=== PATIENT | female | born 1970 | race Caucasian/White ===

== ENCOUNTER 2025-03-08 06:14 | Emergency (ER) | payer OTHER, SELFPAY ==
--- NOTE | 2025-03-08 06:17 | XRR_ITS ---
PROCEDURE INFORMATION: Exam: XR Chest Exam date and time: 03/08/2025 6:24 AM Age: 54 years old Clinical indication: Chest pressure; C/O chest pain TECHNIQUE: Imaging protocol: Radiologic exam of the chest. Views: 1 view. COMPARISON: No relevant prior studies available. FINDINGS: Lungs: Unremarkable. No consolidation. Pleural spaces: Unremarkable. No pleural effusion. No pneumothorax. Heart/Mediastinum: Unremarkable. No cardiomegaly. Bones/joints: Unremarkable. XR/XR chest 1V portable [id number] IMPRESSION: No acute findings.
[2025-03-08 06:18] VITALS: BP 158/93; PULSE 80; RESP 26; O2SAT 100; BMI 27.3
--- NOTE | 2025-03-08 06:22 | ECG_ITS ---
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
--- OUTSIDE RECORDS SUMMARY | 2025-03-08 06:22 | XMS_ITS | Continuity of Care Document ---
Author Organization [facility]. If a dditional information is needed, contact Health Information Management at [phone] [address] [place] [address] Phone Care Team Providers Care Grinding Machine Operator Automatic Name Role Phone Unavailable Unavailable Unavailable Unavailable Unavailable Unavailable Unavailable Unavailable Unavailable Unavailable Unavailable Unavailable Unavailable Unavailable Unavailable Allergies and Adverse Reactions No Known Contrast Allergies( Allergy) Onset: 21-Dec-2004 No Known Drug Allergies(Gaurav rgy) Onset: 21-Dec-2004 No Known Food Allergies(Gaurav rgy) Onset: 21-Dec-2004 No Known Other Allergies(All ergy) Onset: 21-Dec-2004 Encounters pre-admission 01-Jan-2014 08:00 [facility]
--- OUTSIDE RECORDS SUMMARY | 2025-03-08 06:23 | XMS_ITS | Patient Health Record ---
Author Organization [facility] Address [address] [place], [place] [address] Care Team Providers Care Mine Engineering Supervisor Name Role Phone Cliff Carter Unavailable Reason For Referral No Information Medications Medication SIG (Take, Route, Frequency, Duration) Notes Start Date End Date Status Omeprazole 40 MG Oral qAM; Duration: 0 1 (one) C APSULE qAM ORAL 1/2 HR PRIOR TO FOOD 09/15/2011 Active Problems Problem Type SNOMED Code ICD Code Onset Dates Problem Status W/U Status Risk Notes Problem Screening for malignant neoplasm of colon (586280665) Encounter for screening for malignant neoplasm of colon (Z12.11) 02/25/2022 Active confirmed Plan Of Treatment No Information Insurance Providers Payer Name Payer Address Payer Phone Subscriber Number Group Number Insured Name Patient Relationship to Insured Coverage Start Date Coverage End Date [facility] Federal [address] [place] [address] [id number] LYUDMILA BALDERAS Self - patient is the insured 2
--- OUTSIDE RECORDS SUMMARY | 2025-03-08 06:23 | XMS_ITS | Clinical Summary ---
Author Organization [facility] Address [address] [place] [address] Care Team Providers Care Hand Tire Trimmer Name Role Phone Diane Spring MD Primary Care Provider [phone] Allergies No known active allergies Medications aspirin 81 MG chewable tablet Chew 1 tablet (81 mg total) daily. 08/11/2021 Active Social History Tobacco Use Types Packs/Day Years Used Date Smoking Tobacco: Former Cigarettes Smokeless Tobacco: Never Tobacco Cessation:Counseling Given: Not Answered Alcohol Use Standard Drinks/Week Comments Not Currently 0 (1 standard drink = 0.6 oz pur e alcohol) PHQ-2 Answer Date Recorded Part 1 Score: 0 07/09/2024 [facility] Transportation Needs Answer Date R ecorded Transportation Needs Not on file 09/02/2023 In the next 24 hours or afte r discharge, are you in a situation where housing, food, or transportation is a concern, or does the patient demonstrate the inability to care for self that could result in imminent harm No 09/01 [facility] Food Insecurity Answer Date Record ed Food Insecurity Not on file 09/02/2023 In the next 24 hours or afte r discharge, are you in a situation where housing, food, or transportation is a concern, or does the patient demonstrate the inability to care for self that could result in imminent harm No 09/01 [facility] Housing Answer Date Recorded Housing Insecurity Not on file 09/02/2023 In the next 24 hours or afte r discharge, are you in a situation where housing, food, or transportation is a concern, or does the patient demonstrate the inability to care for self that could result in imminent harm No 09/01 Comments No Sex and Gender Information Value Date Recorded Sex Assigned at Not on file Legal Sex Female 1:11 PM CLINICAL PROJECT ASSISTANT Gender Identity Not on file Sexual Orientation Not on file Last Filed Vital Signs Vital Sign Reading Time Taken Comments Blood Pressure 152/98 07/09/2024 11:19 PM CLINICAL PROJECT ASSISTANT Pulse 67 07/09/2024 11:19 PM CLINICAL PROJECT ASSISTANT Temperature 36.1 C (96.9 F) 07/09/2024 11:19 PM CLINICAL PROJECT ASSISTANT Respiratory Rate 18 07/09/2024 11:19 PM CLINICAL PROJECT ASSISTANT Oxygen Saturation 100% 07/09/2024 11:19 PM CLINICAL PROJECT ASSISTANT Inhaled Oxygen Concentration - - Weight 104.3 kg (230 lb) 08/11/2021 4:00 PM CLINICAL PROJECT ASSISTANT Height 172.7 cm (5' 8 ) 08/11/2021 4:00 PM CLINICAL PROJECT ASSISTANT Body Mass Index 34.97 08/11/2021 4:00 PM CLINICAL PROJECT ASSISTANT Plan of Treatment Health Maintenance Due Date Last Done Comments Colonoscopy 1970 Colorectal Cancer Screening 1970 FIT-DNA 1970 Fecal Occult Blood or FIT 1970 Hepatitis C Screen 1970 Sigmoidoscopy 1970 Td/Tdap# 1970 Social Drivers of Health# 1988 Cervical Cancer Screening vi a Pap Smear 1991 Mammogram Screening 2010 Hepatitis B Vaccine (3 of 3 - 19+ 3-dose series) 10/14/2019 08/19/2019, 02/15/2017 Pneumococcal Vaccine: 50+ Ye ars (1 of 1 - PCV) 2020 COVID-19 Vaccine (6 - 2024-2 6 season) 2025 04/21/2022, 11/03/2021, 03/08/2021, Additional history exists Influenza Vaccine (#1) 2025 , 04/21/2022, 03/08/2021, Additional history exists Zoster Vaccine# Completed 04/05/2023, 02/01/2023 Insurance [facility] Care Teams Hand Tire Trimmer Relationship Specialty Start Date End Date Diane Spring MD PCP - General Family Medicine 08/11/21
--- OUTSIDE RECORDS SUMMARY | 2025-03-08 06:23 | XMS_ITS | Patient Health Record ---
Author Organization [facility] Address [address] [place], [place] [address] Care Team Providers Care Shoddy Mill Worker Name Role Phone Diane Spring Primary Care Provider Dilshad Wyman Unavailable [phone] Allergies No Known Allergies Reason For Referral No Information Medications Medication SIG (Take, Route, Fr equency, Duration) Notes Start Date End Date Status Multivitamin - 1 tablet Orally Once a day Active Omeprazole Active Social History Tobacco Use: Social History Observation Description Date Details (start date - stop date) Current Smoker NA - NA smoking Question Answer Notes Smoking Status current smoker Problems Problem Type SNOMED Code ICD Code Onset Dates Problem Status W/U Status Risk Notes Problem Neuropathy (702699410) Neuropathy (G62.9) Active confirmed cramping pain in the right foot cannot be reproduced today. Symptoms of sensory changes in both feet and hands warrant further workup/Neuro consult. Problem Pain in limb (41920341) Mechanical pain of right foot (M79.671) Active confirmed Plan Of Treatment Pending Test Test Name Order Date X ray: Foot, right 02/24/2021 Insurance Providers Payer Name Payer Address Payer Phone Subscriber Number Group Number Insured Name Patient Relationship to Insured Coverage Start Date Coverage End Date [employer] [place] [address] [place] [phone] [id number] Sagar Pérez Self - patient is the insured Medical (General) History Medical History History ICD Code Foot or Leg Cramps Swelling in Ankles and Feet Cramps or Numbness in Feet or Legs
--- OUTSIDE RECORDS SUMMARY | 2025-03-08 06:23 | XMS_ITS | Clinical Summary ---
Author Organization [facility] Address [address] [place] [address] Care Team Providers Care Martial Arts Instructor Name Role Phone Shyann Jimenez APRN-[facility] MOBILITY ARCHITECT Unavailable [phone] Serina Molina MD Primary Care Provider [phone] Source Comments Some departments are not documenting in the electronic medical record. If you do not see the information that you expected, contact Release of Information in the Health Information Management department at [phone] for further assistance in locating additional records.[facility] Allergies Active Allergy Reactions Criticality Noted Date Comments Levofloxacin RASH 10/28/2013 Gatifloxacin RASH 10/28/2013 Medications ACETAMINOPHEN (TYLENOL PO) Take by mouth. Active famotidine (PEPCID) 20 mg tablet Take 20 mg by mouth twice daily. Active Medical History Medical History Date Comments Leuk[facility] ([facility]) Social History Tobacco Use Types Packs/Day Years Used Date Smoking Tobacco: Never Smokeless Tobacco: Never Alcohol Use Standard Drinks/Week Comments No 0 (1 standard drink = 0.6 oz pur e alcohol) Comments No Sex and Gender Information Value Date Recorded Sex Assigned at Not on file Legal Sex Female 8:18 PM CDT Gender Identity Not on file Sexual Orientation Not on file Obstetrics History Last Filed Vital Signs Vital Sign Reading Time Taken Comments Blood Pressure 188/96 10/28/2013 8:21 PM CDT Pulse - - Temperature 37.3 C (99.1 F) 10/28/2013 8:21 PM CDT Respiratory Rate - - Oxygen Saturation 98% 10/28/2013 8:21 PM CDT Inhaled Oxygen Concentration - - Weight 91.2 kg (201 lb 1 oz) 10/28/2013 8:21 PM CDT Height - - Body Mass Index - - Plan of Treatment Health Maintenance Due Date Last Done Comments HIV SCREENING 1985 DTAP/TDAP VACCINES (1 - Tdap) 1988 HEPATITIS C SCREENING 1988 PHYSICAL (COMPREHENSIVE) EXAM 1988 CERVICAL CANCER SCREENING 1991 BREAST CANCER SCREENING 2010 COLORECTAL CANCER SCREENING 2015 PNEUMOCOCCAL VACCINE AGE 50 AND OVER (1 of 1 - PCV) 2020 SHINGLES RECOMBINANT VACCINE (1 of 2) 2020 DEPRESSION SCREENING 06/12/2024 INFLUENZA VACCINE (#1) 2025 COVID-19 VACCINE (1 - 2023-2 5 season) 2025 HPV VACCINES Aged Out No longer eligi ble based on patient's age to complete this topic MENINGOCOCCAL B VACCINE Aged Out No l onger eligible based on patient's age to complete this topic Insurance BCBS MER FED EMP PROGRAM Care Teams Martial Arts Instructor Relationship Specialty Start Date End Date Serina Molina MD [address] [place] [address] PCP - General Family Medicine 10/28/13 Shyann Jimenez APRN-[employer] MOBILITY ARCHITECT [address] [place] [address] 10/28/13
--- OUTSIDE RECORDS SUMMARY | 2025-03-08 06:23 | XMS_ITS | Encounter Summary ---
Author Organization [facility] Address [address] [place] [address] Care Team Providers Care Roofing Laborer Name Role Phone Hanna Sandhu MD Primary Care Provider + Source Comments Please be aware that You and/or your organization are solely responsible for the use, security, privacy, and any decisions made with any information you receive from [email or web address] Reason for Visit * Reason Comments Med Change Request Encounter Details Date Type Department Care Team ([facility] Contact Info) Description 03/05/2025 Refill [facility] [address] [place] [phone] Hanna Sandhu MD [address] [place] [address] Obesity (BMI 30-39.9); Obstructive sleep apnea of adult Social History Tobacco Use Types Packs/Day Years Used Date Smoking Tobacco: Former Cigarettes 0.2 39.7 S tarted: 1985 Passive Smoke Exposure: Past Smokeless Tobacco: Never Alcohol Use Standard Drinks/Week Comments Yes 1 (1 standard drink = 0.6 oz pur e alcohol) week Social Connection and Isolat ion Panel [NHANES] Answer Date Recorded In a typical week, how many times do you talk on the phone with family, friends, or neighbors? More than three times a week 08/23/2024 How often do you get togethe r with friends or relatives? Three times a week 08/23/2024 How often do you attend [facility] or anglican services? Never 08/23/2024 Do you belong to any clubs o r organizations such as taoism groups, unions, fraternal or athletic groups, or school groups? No 08/23/2024 How often do you attend meet ings of the clubs or organizations you belong to? Never 08/23/2024 Are you , , di vorced, , never , or living with a partner? Living with partner 08/23/2024 AUDIT-C Answer Date Recorded Q1: How often do you have a drink containing alc ohol? Monthly or less 08/23/2024 Q2: How many drinks containi ng alcohol do you have on a typical day when you are drinking? 1 or 2 08/23/2024 Q3: How often do you have si x or more drinks on one occasion? Never 08/23/2024 Overall Financial Resource Strain (CARDIA) Answe r Date Recorded How hard is it for you to pa y for the very basics like food, housing, medical care, and heating? Not hard at all 08/23/2024 PHQ-2 Answer Date Recorded Patient Health Questionnaire-2 Score 0 08/23/2024 [facility] - Occupational Stress Questionnaire Answer Date Recorded Do you feel stress - tense, restless, nervous, or anxious, or unable to sleep at night because your mind is troubled all the time - these days? Only a little 08/23/2024 Physical Activity Answer Date Recorded On average, how many days pe r week do you engage in moderate to strenuous exercise (like a brisk walk)? 4 days On average, how many minutes do you engage in exercise at this level? 30 min 08/23/2024 On average, how many minutes do you engage in exercise at this level? 30 min 08/23/2024 On average, how many days pe r week do you engage in moderate to strenuous exercise (like a brisk walk)? 4 days Days of Exercise per Week PEA Not on file Minutes of Exercise per Session PEA Not on file 08/23/2024 [facility] Food Security Answer Date Recorded Within the past 12 months, t he food you bought just didn't last and you didn't have money to get more. 3 08/23/2024 Within the past 12 months, y ou worried that your food would run out before you got money to buy more. 3 08/23/2024 [facility] Transportation Needs Answer Date Re corded In the past 12 months, has l ack of reliable transportation kept you from medical appointments, meetings, work or from getting things needed for daily living? No 08/23/2024 [facility] Housing Answer Date Recorded What is your living situation today? [facility] 08/23/[address] you li ve. Do you have problems with any of the following? None of the above 08/23/2024 [facility] Safety Answer Date Recorded How often does anyone, mark nevarez family and friends, threaten you with harm? 1 08/23/2024 How often does anyone, mark nevarez family and friends, insult or talk down to you? 1 08/23/2024 How often does anyone, mark nevarez family and friends, physically hurt you? 1 08/23/2024 How often does anyone, mark nevarez family and friends, scream or curse at you? 1 08/23/2024 [facility] Utilities Answer Date Recorded In the past 12 months has th e electric, gas, oil, or water company threatened to shut off services in your home? No 08/23/2024 Comments No Sex and Gender Information Value Date Recorded Sex Assigned at Not on file Legal Sex Female 8:28 PM EST Gender Identity Not on file Sexual Orientation Not on file documented as of this encounter Plan of Treatment Upcoming Encounters Date Type Department Care Team (Late st Contact Info) Description 05/16/2025 8:00 AM OXYACETYLENE WELDER Office Visit [facility] [address] [place] [phone] [place] [address] [place] [address] [address] [place] [phone] documented as of this encounter Visit Diagnoses Diagnosis Obesity (BMI 30-39.9) Obstructive sleep apnea of adult documented in this encounter Care Teams Roofing Laborer Relationship Specialty Start Date End Date Hanna Sandhu MD PCP - General Family Medicine 01/31/23 documented as of this encounter
--- OUTSIDE RECORDS SUMMARY | 2025-03-08 06:23 | XMS_ITS | Encounter Summary ---
Author Organization [facility] Address [address] [place] [address] Care Team Providers Care Irrigation Installation Specialist Name Role Phone Hanna Sandhu MD Primary Care Provider + Source Comments Please be aware that You and/or your organization are solely responsible for the use, security, privacy, and any decisions made with any information you receive from [email or web address] Reason for Visit * Reason Comments Med Refill Encounter Details Date Type Department Care Team ([facility] Contact Info) Description 03/05/2025 Refill [facility] [address] [place] [phone] Hanna Sandhu MD [address] [place] [phone] Obesity (BMI 30-39.9); Obstructive sleep apnea of adult Social History Tobacco Use Types Packs/Day Years Used Date Smoking Tobacco: Former Cigarettes 0.2 39.7 S tarted: 1986 Passive Smoke Exposure: Past Smokeless Tobacco: Never [...] week 08/23/2024 How often do you attend [facility] or druze services? Never 08/23/2024 Do you belong to any clubs o r organizations such as druze groups, unions, fraternal or athletic groups, or [...] Recorded Patient Health Questionnaire-2 Score 0 08/23/2024 [facility] - Occupational Stress Questionnaire Answer Date [...] per Session PEA Not on file 08/23/2024 [facility] Food Security Answer Date Recorded Within the past 12 months, t he food you bought just didn't last and you didn't have money to get more. 3 08/23/2024 Within the past 12 months, y ou worried that your food would run out before you got money to buy more. 3 08/23/2024 [facility] Transportation Needs Answer Date Re corded In the past 12 months, has l ack of reliable transportation kept you from medical appointments, meetings, work or from getting things needed for daily living? No 08/23/2024 [facility] Housing Answer Date Recorded What is your living situation today? [facility] 08/23/[address] you li ve. Do you have problems with any of the following? None of the above 08/23/2024 [facility] Safety Answer Date Recorded How often does [...] scream or curse at you? 1 08/23/2024 [facility] Utilities Answer Date Recorded In the past [...] st Contact Info) Description 05/16/2025 8:00 AM RETAIL SHIFT SUPERVISOR Office Visit [facility] [address] [place] [phone] [place] [address] [place] [address] [address] [place] [phone] documented as of this encounter Visit Diagnoses Diagnosis Obesity (BMI 30-39.9) Obstructive sleep apnea of adult documented in this encounter Care Teams Irrigation Installation Specialist Relationship Specialty Start Date End Date Hanna Sandhu MD PCP - General Family Medicine 01/31/23 documented as of this encounter
--- OUTSIDE RECORDS SUMMARY | 2025-03-08 06:24 | XMS_ITS | Clinical Summary ---
Author Organization [facility] Address [address] [place] [address] Care Team Providers Care Geodetic Surveyor Name Role Phone Hanna Sandhu MD Primary Care Provider + Allergies Active Allergy Reactions Criticality Noted Date Comments Gatifloxacin Hives,Rash Low 02/01/2012 Tequin Levofloxacin Rash Low 10/28/2013 Quinolones 07/04/2023 fluoroquinolone Medications Multiple Vitamin (multivitamin) tablet Take 1 tablet by mouth 1 (one) time each day. Active FIBER ADULT GUMMIES PO Take by mouth. Active LORazepam (Ativan) 0.5 MG tabletIndication s:Panic attack Take 1 tablet (0.5 mg total) by mouth every 6 (six) hours if needed for anxiety for up to 10 days. 30 tablet 05/23/20 24 Active buPROPion XL (Wellbutrin XL) 150 MG 24 hr tabletIndication s:MDD (major depressive disorder), recurrent episode, mild (HCC) Take 1 tablet (150 mg total) by mouth 1 (one) time each day in the morning. Do not crush, chew, or split. 90 tablet 3 05/23/20 24 025 Active MAGNESIUM-POTASS IUM PO Take by mouth. Active hydroCHLOROthiaz natalie (HYDRODiuril) 25 MG tabletIndication s:Essential hypertension Take 1 tablet (25 mg total) by mouth 1 (one) time each day. 90 tablet 3 08/24/19 25 026 Active Biotin 1 MG capsule Take by mouth. Active estradiol (Estrace) 0.1 MG/GM vaginal creamIndications :Vaginal dryness Insert 1 g into the vagina 3 (three) times a week. 42.5 g 3 11/16/19 25 Active potassium chloride CR 20 MEQ ER tabletIndication s:Hypokalemia TAKE 1 TABLET BY MOUTH 1 TIME EACH DAY. DO NOT CRUSH OR CHEW. 90 tablet 11/22/19 25 Active pantoprazole (Protonix) 20 MG EC tablet TAKE 1 TABLET (20 MG TOTAL) BY MOUTH DAILY BEFORE BREAKFAST DO NOT CRUSH,CHEW,OR SPIT 90 tablet 1 02/20/20 25 Active Tirzepatide-Weig ht Management (Zepbound) 10 MG/0.5ML solution auto-injectorInd ications:Obesity (BMI 30-39.9),Obstruc tive sleep apnea of adult INJECT 0.5 ML (10 MG TOTAL) UNDER THE SKIN 1 (ONE) TIME PER WEEK. 2 mL 1 03/05/20 25 025 Active pantoprazole (Protonix) 20 MG EC tablet Take 1 tablet (20 mg total) by mouth 1 (one) time each day before breakfast. Do not crush, chew, or split. 90 tablet 3 02/14/20 24 025 Discontinued Tirzepatide-Weig ht Management (Zepbound) 10 MG/0.5ML solution auto-injectorInd ications:Obesity (BMI 30-39.9),Obstruc tive sleep apnea of adult Inject 0.5 mL (10 mg total) under the skin 1 (one) time per week. 2 mL 1 12/31/19 25 025 Discontinued Active Problems Problem Noted Date Diagnosed Date Hypokalemia 08/23/2024 Assessment & Plan (11/15/2024 3:48 PM CDT): Continue potassium supplement Assessment & Plan (08/23/2024 4:27 PM CDT): Continue potassium supplement, will continue to monitor. Obesity (BMI 30-39.9) 05/23/2024 Assessment & Plan (11/15/2024 3:48 PM CDT): Continue zepbound 10 mg per week, continue physical activity and healthy nutrition Assessment & Plan (08/23/2024 4:00 PM CDT): BMI today 29.99. Continue Zepbound and increase to 7.5 mg weekly. Use and side effects reviewed. Tolerating well. Continue whole foods and well balanced meals alongside regular physical activity. Assessment & Plan (05/23/2024 4:10 PM STEEL LOADER): Continue Wegovy 2.4mg/week. Continue strength training, and increased protein and fiber. SVT (supraventricular tachycardia) 05/23/2024 Assessment & Plan (11/15/2024 3:48 PM CDT): Continue to monitor closely, continue potassium supplement Assessment & Plan (05/23/2024 4:10 PM STEEL LOADER): Start propranolol 1/2 tab PRN MDD (major depressive disorder), recurrent episo de, mild 05/23/2024 Assessment & Plan (11/15/2024 3:48 PM CDT): Stable, continue bupropion Assessment & Plan (08/23/2024 4:00 PM CDT): Mood is stable on Wellbutrin 150 mg XL. Continue medication daily. Takes Ativan seldomly and does not need refills today. Assessment & Plan (05/23/2024 4:10 PM STEEL LOADER): Stable, continue bupropion XL 150mg daily Orders: buPROPion XL (Wellbutrin XL) 150 MG 24 hr tablet; Take 1 tablet (150 mg total) by mouth 1 (one) time each day in the morning. Do not crush, chew, or split. Panic attack 05/23/2024 Assessment & Plan (08/23/2024 4:01 PM CDT): Mood is stable on Wellbutrin 150 mg XL. Continue medication daily. Takes Ativan seldomly and does not need refills today. Assessment & Plan (05/23/2024 4:10 PM STEEL LOADER): Stable, continue Ativan PRN. Orders: LORazepam (Ativan) 0.5 MG tablet; Take 1 tablet (0.5 mg total) by mouth every 6 (six) hours if needed for anxiety for up to 10 days. Essential hypertension 05/23/2024 Assessment & Plan (11/15/2024 3:48 PM CDT): Blood pressure at goal, continue hydrochlorothiazide 25 mg Assessment & Plan (08/23/2024 3:59 PM CDT): Will increase to hydrochlorothiazide 25 mg daily to get better BP control. Would advise low sodium diet and regular physical activity. Assessment & Plan (05/23/2024 4:10 PM STEEL LOADER): BP at goal, continue HCTZ 12.5mg per day. Orders: hydroCHLOROthiazide 12.5 MG tablet; Take 1 tablet (12.5 mg total) by mouth 1 (one) time each day. History of myeloid leukemia 02/01/20232 08/2022 Cigarette smoker 02/01/2023 02/01/2023 Mood disorder 02/01/2023 02/01/2023 Vitamin D deficiency 02/01/2023 02/01/2023 Gastroesophageal reflux disease without esophagi tis 04/22/2022 02/01/2023 Assessment & Plan (08/23/2024 3:59 PM CDT): Stable on pantoprazole 20 mg daily. Assessment & Plan (05/23/2024 4:10 PM STEEL LOADER): Stable, continue PPI PRN Multinodular goiter 12/01/2021 02/01/2023 Obstructive sleep apnea of adult 11/06/2019 02/01/2023 Assessment & Plan (11/15/2024 3:48 PM CDT): Continue CPAP and zepbound Assessment & Plan (08/23/2024 3:57 PM CDT): Continue CPAP nightly. Will increase Zepbound to 7.5 mg weekly. Encounters Date Type Department Care Team Description 03/05/2025 Refill [facility] Primary Care at [address] [place] [phone] Hanna Sandhu MD Obesity (BMI 30-39.9); Obstructive sleep apnea of adult 03/05/2025 Refill [facility] Primary Care at [address] [place] [phone] Hanna Sandhu MD Obesity (BMI 30-39.9); Obstructive sleep apnea of adult 02/16/2025 Refill [facility] Primary Care at [address] [place] [address], [place] [phone] Hanna Sandhu MD 12/30/2024 Telephone [facility] Primary Care at [address] [place] [address], [place] [phone] Hanna Sandhu MD from Last 3 Months Immunizations Immunization Administration Dates Next Due Hep A, Adult 08/19/2019,02/15/2017 Hep B, adult 08/19/2019,02/15/2017 Influenza, MDCK, trivalent, PF 08/10/2024 Influenza, injectable, quadrivalent 04/05/2023,0 03/08/2021,03/23/2020 Pfizer Sars-cov-2 Vaccination 11/03/2021 ,03/08/2021,07/23/2020, 021 Pfizer Sars-cov-2 Vaccination 12y+ 11/03/2021 Tdap 02/01/2023,08/18/2012 Zoster, Recombinant 04/05/2023,02/01/2023 Family History Medical History Relation Name Comments Diabetes Father's Brother ALS Maternal Grandfather Lung cancer Maternal Grandfather Breast cancer Maternal Grandmother Adjustment Disorder with Mix ed Anxiety and Depressed Mood Mother paranoia, dx in 30's w/mild schizo after rape by father Dementia Mother Diabetes Mother Heart disease Mother 2 ablations fo r arrhythmia, 2 strokes Hypertension Mother ALS Mother's Brother Brain cancer Mother's Brother Breast cancer Mother's Sister Pancreatic cancer Mother's Sister Anxiety disorder Sister Relation Name Status Comments Father's Brother Maternal Grandfather Maternal Grandmother Mother Mother's Brother Mother's Sister Sister Social History Tobacco Use Types Packs/Day Years Used Date Smoking Tobacco: Former Cigarettes 0.2 39.7 S tarted: 1985 Passive Smoke Exposure: Past Smokeless Tobacco: Never Tobacco Cessation:Counseling Given: Not Answered Alcohol Use Standard Drinks/Week Comments Yes 1 [...] week 08/23/2024 How often do you attend chur ch or moravian services? Never 08/23/2024 Do you belong to any clubs o r organizations such as oriental orthodox groups, unions, fraternal or athletic groups, or [...] Recorded Patient Health Questionnaire-2 Score 0 08/23/2024 [facility] [place] [facility] Occupat ional [facility] - Occupational Stress Questionnaire Answer Date Recorded [...] per Session PEA Not on file 08/23/2024 [facility] Food Security Answer Date Recorded Within the past 12 months, t he food you bought just didn't last and you didn't have money to get more. 3 08/23/2024 Within the past 12 months, y ou worried that your food would run out before you got money to buy more. 3 08/23/2024 [facility] Transportation Needs Answer Date Re corded In the past 12 months, has l ack of reliable transportation kept you from medical appointments, meetings, work or from getting things needed for daily living? No 08/23/2024 [facility] Housing Answer Date Recorded What is your living situation today? I have a [facility] place to live 08/23/[address] you li ve. Do you have problems with any of the following? None of the above 08/23/2024 [facility] Safety Answer Date Recorded How often [...] scream or curse at you? 1 08/23/2024 [facility] Utilities Answer Date Recorded In the [...] Sign Reading Time Taken Comments Blood Pressure 110/86 11/14/2024 12:55 PM CDT Pulse 63 11/14/2024 12:55 PM CDT Temperature 36.4 C (97.6 F) 11/14/2024 12:55 PM CDT Respiratory Rate 16 11/14/2024 12:55 PM CDT Oxygen Saturation 98% 11/14/2024 12:55 PM CDT Inhaled Oxygen Concentration - - Weight 84.6 kg (186 lb 9.6 oz) 11/14/2024 12:55 PM CDT Height 170.2 cm (5' 7 ) 11/14/2024 12:55 PM CDT Body Mass Index 29.23 11/14/2024 12:55 PM CDT Plan of Treatment Upcoming Encounters Date Type Department Care Team (Late st Contact Info) Description 05/16/2025 8:00 AM STEEL LOADER Office Visit [facility] at [place] [address] [facility] [address] [place] [phone] Hanna Sandhu MD [address] [place] [phone] Health Maintenance Due Date Last Done Comments CT Colonography 1970 Cologuard 1970 FIT 1970 FOBT 1970 HIV Screening 1970 Sigmoidoscopy 1970 MMR Vaccines (1 of 1 - Standard series) 1971 Obesity Intervention 1976 Pap Smear 1991 Hepatitis B Vaccines (3 of 3 - 19+ 3-dose series) 10/14/2019 08/19/2019, 02/15/2017 Pneumococcal Vaccine: 50+ Years (1 of 1 - PCV) 2020 Influenza Vaccine (#1) 2025 , 04/05/2023, 03/08/2021, Additional history exists Depression Screening 08/23/2025 08/23/2024 Diabetes Screening 08/23/2025 08/23/2024, 0 08/23/2024, 07/10/2024, Additional history exists Annual Physical 08/24/2025 08/23/2024 Mammogram 08/30/2025 08/30/2024, 12/0 11/2022, 09/10/2021, Additional history exists Lipid Panel 08/23/2029 08/23/2024, 02/01/2023 Cervical Cancer Screening 11/15/2029 HPV/Cotest 11/15/2029 11/15/2024 Colonoscopy 02/26/2032 02/25/2022 Colorectal Cancer Screening 02/26/2032 DTaP/Tdap/Td Vaccines (3 - Td or Tdap) 02/01/2033 02/01/2023, 08/18/2012 Respiratory Syncytial Virus (RSV) 60 years and older and/or patients (1 - 1-dose 75+ series) 2045 Hepatitis A Vaccines Aged Out 08/19/2019, 02/16/20 17 No longer eligible based on patient's age to complete this topic Zoster Vaccines Completed 04/05/2023, 02/01/2023 COVID-19 Vaccine Completed 08/10/2024, , 11/03/2021, Additional history exists HPV Vaccines Aged Out No longer eligi ble based on patient's age to complete this topic Meningococcal B Vaccine Aged Out No l onger eligible based on patient's age to complete this topic Meningococcal Vaccine Aged Out No niraj kristin eligible based on patient's age to complete this topic Respiratory Syncytial Virus (RSV) <20 months Aged Out No longer eligible based on patient's age to complete this topic Procedures Procedure Name Priority Date/Time Associated Diagnosis Comments IGP, APT HPV,RFX 16/18,45 Routine 11/15/2024 6:09 AM CDT Essential hypertension BI MAMMOGRAM SCREENING TOMOSYNTHESIS BILATERAL Routine 08/30/2024 9:16 AM CDT Encounter for screening mammogram for malignant neoplasm of breast COMPREHENSIVE METABOLIC PANEL Routine 08/23/2024 2:26 PM CDT Routine general medical examination at a health care facility LIPID PANEL W DIRECT LDL Routine 08/23/2024 2:26 PM CDT Routine general medical examination at a health care facility HM COLONOSCOPY Routine 02/25/2022 from Last 3 Months or Most Recently Relevant to Health Maintenance Results * IGP, Apt HPV,rfx 16/18,45 (11/15/2024 6:09 AM CDT) Diagnosis: Comment [facility] (RESULTS) (BKR) Comment: NEGATIVE FOR INTRAEPITHELIAL LESION OR MALIGNANCY. REACTIVE CELLULAR CHANGES AND/OR REPAIR ARE PRESENT. ENDOMETRIAL CELLS ARE PRESENT. Specimen Adequacy Comment [facility] (RESULTS) (BKR) Comment: Satisfactory for evaluation. Endocervical and/or squamous metaplastic cells (endocervical component) are present. CLINICIAN PROVIDED ICD10: Comment [facility] (RESULTS) (BKR) Comment:Z01.419 PERFORMED BY: Comment [facility] (RESULTS) (BKR) Comment:Vern Barker, Cyto logist (ASCP) ELECTRONICALLY SIGNED BY: Comment [facility] (RESULTS) (BKR) Comment: Keisha Motta DO, Pathologist NPI- [id number] CYTO COMMENTS . [facility] (RESULTS) (BKR) PATHOLOGIST PROVIDED ICD10: Comment [facility] (RESULTS) (BKR) Comment:Z12.4 NOTE: Comment [facility] (RESULTS) (BKR) Comment: The Pap smear is a screening test designed to aid in the detection of premalignant and malignant conditions of the uterine cervix. It is not a diagnostic procedure and should not be used as the sole means of detecting cervical cancer. Both false-positive and false-negative reports do occur. Methodology Comment [facility] (RESULTS) (BKR) Comment: This liquid based ThinPrep(R) pap test was screened with the use of an image guided system. HPV Aptima Negative Negative [facility] (RESULTS) (BKR) Comment: This nucleic acid amplification test detects fourteen high-risk HPV types (16,18,31,33,35,39,45,51,52,56,58,59,66,68) without differentiation. 11/15/2024 6:09 AM CDT 11/14/2024 11:00 PM CDT Narrative [facility] - 11/26/2024 4:07 PM CDT Performed at: 01 - [facility] [place] [address] [id number] Hydroelectric Machinery Mechanic: Bao Kaye MD, Phone: [phone] Performed at: 02 - [facility] [address] [id number] Hydroelectric Machinery Mechanic: Bao Kaye MD, Phone: [phone] Performed at: 03 - [facility] [address] [id number] Hydroelectric Machinery Mechanic: Bao Kaye MD, Phone: [phone] Specimen Comment: Source.............Cervix;Endocervix;Vagina Specimen Comment: LMP / Prev Treat...[id number] Specimen Comment: No. of containers..01 ThinPrep Vial us Hanna Hilliard MD LAB CYTOLOGY ORDERABLES Final Result [facility] (RESULTS) (BKR) * BI Mammogram Screening W Tomosynthesis Bilateral (08/30/2024 9:16 AM CDT) Anatomical Region Laterality Modality Breast Bilateral Mammography Impressions 09/06/2024 12:52 PM CDT No mammographic evidence of malignancy. BI-RADS Category 2: Benign. RECOMMENDATION: Routine screening mammography in one year is recommended. Our facilities are accredited by the [employer] Mammography Program. [facility] tracking Follow-up Recommendation(s): Annual Screening Breast: Bilateral Created by: Dr Jr Jefferson DO Signed by: Dr Jr Jefferson DO Signed on: 09/06/2024 12:52 CDT Location: [id number] 09/06/2024 12:52 PM CDT BILATERAL DIGITAL SCREENING MAMMOGRAM WITH 3-D TOMOSYNTHESIS AND CAD INDICATION: Screening. COMPARISON: May 17, 2023, September 10, 2021 and August 02, 2019. LIFETIME BREAST CANCER RISK (TYRER-CUZICK MODEL): 8.6% (avg risk: 12.8%; high risk: >/= 20%) SCREENING RECOMMENDATIONS BASED ON RISK: Annual screening mammogram. Recommendations per ACR guidelines. TECHNIQUE: 3D tomosynthesis and digital 2D or synthesized 2D mammography. Computer aided detection (CAD) was utilized in the interpretation of this exam. DENSITY: B - There are scattered areas of fibroglandular density. FINDINGS: Similar appearance of scattered bilateral benign coarse calcifications. No suspicious masses, calcifications or areas of architectural distortion are detected. No definite pathologic axillary lymphadenopathy or abnormal skin thickening. Procedure Note Jr Jefferson DO - 09/06/2024 BILATERAL DIGITAL SCREENING MAMMOGRAM WITH 3-D TOMOSYNTHESIS AND CAD INDICATION: Screening. COMPARISON: May 17, 2023, September 10, 2021 and August 02, 2019. LIFETIME BREAST CANCER RISK (TYRER-CUZICK MODEL): 8.6% (avg risk: 12.8%;high risk: >/= 20%) SCREENING RECOMMENDATIONS BASED ON RISK: Annual screening mammogram.Recommendations per ACR guidelines. TECHNIQUE: 3D tomosynthesis and digital 2D or synthesized 2D mammography.Computer aided detection (CAD) was utilized in the interpretation of thisexam. DENSITY: B - There are scattered areas of fibroglandular density. FINDINGS: Similar appearance of scattered bilateral benign coarse calcifications.No suspicious masses, calcifications or areas of architectural distortionare detected. No definite pathologic axillary lymphadenopathy or abnormalskin thickening. IMPRESSION: No mammographic evidence of malignancy. BI-RADS Category 2: Benign. RECOMMENDATION: Routine screening mammography in one year isrecommended. Our facilities are accredited by the [employer]amm[employer] Program. [facility] tracking Follow-up Recommendation(s): Annual Screening Breast: Bilateral Created by: Dr Jr Jefferson DO Signed by: Dr Jr Jefferson DO Signed on: 09/06/2024 12:52 CDT Location: [place] [id number] us Hanna Hilliard MD IMG BI PROCEDURES Final Result * Lipid Panel with Direct LDL (08/23/2024 2:26 PM CDT) Cholesterol, Total 164 100 - 199 mg/dL [facility] (RESULTS) (BKR) Triglycerides 114 0 - 149 mg/dL [facility] (RESULTS) (BKR) HDL Cholesterol 62 >39 mg/dL [facility] (RESULTS) (BKR) LDL Cholesterol, Calc 82 0 - 99 mg/dL [facility] (RESULTS) (BKR) LDL Calc Comment: Comment [facility] (RESULTS) (BKR) Comment:See LDL Comment if r eported. Chol/HDL Ratio 2.6 0.0 - 4.4 ratio [facility] (RESULTS) (BKR) Comment: T. Chol/HDL Ratio Men Women 1/2 Avg.Risk 3.4 3.3 Avg.Risk 5.0 4.4 2X Avg.Risk 9.6 7.1 3X Avg.Risk 23.4 11.0 LDL/HDL Ratio 1.3 0.0 - 3.2 ratio [facility] (RESULTS) (BKR) Comment: LDL/HDL Ratio Men Women 1/2 Avg.Risk 1.0 1.5 Avg.Risk 3.6 3.2 2X Avg.Risk 6.2 5.0 3X Avg.Risk 8.0 6.1 LDL Cholesterol, Direct 80 0 - 99 mg/dL [facility] (RESULTS) (BKR) Blood Venous blood specimen / Unknown 08/23/2024 2:26 PM CDT 08/22/2024 11:00 PM CDT Narrative [facility] - 08/24/2024 4:06 AM CDT Performed at: 01 - [address] [id number] Hydroelectric Machinery Mechanic: Donavan Liz MD, Phone: [phone] Brandy Stafford APRN, RN LAB BLOOD ORDERABLES Fin al Result [facility] (RESULTS) (BKR) * Comprehensive Metabolic Panel (CMP) (08/23/2024 2:26 PM CDT) Glucose 84 70 - 99 mg/dL [facility] (RESULTS) (BKR) BUN 10 6 - 24 mg/dL [facility] (RESULTS) (BKR) Creatinine 0.96 0.57 - 1.00 mg/dL [facility] (RESULTS) (BKR) eGFR 70 >59 mL/min/1.7 3 [facility] (RESULTS) (BKR) BUN/Creatinine Ratio 10 9 - 23 [facility] (RESULTS) (BKR) Sodium 142 134 - 144 mmol/L [facility] (RESULTS) (BKR) Potassium 3.9 3.5 - 5.2 mmol/L [facility] (RESULTS) (BKR) Chloride 103 96 - 106 mmol/L [facility] (RESULTS) (BKR) Carbon Dioxide 24 20 - 29 mmol/L [facility] (RESULTS) (BKR) Calcium 9.5 8.7 - 10.2 mg/dL [facility] (RESULTS) (BKR) Protein, Total 6.2 6.0 - 8.5 g/dL [facility] (RESULTS) (BKR) Albumin 4.4 3.8 - 4.9 g/dL [facility] (RESULTS) (BKR) Globulin 1.8 1.5 - 4.5 g/dL [facility] (RESULTS) (BKR) Bilirubin, Total 0.4 0.0 - 1.2 mg/dL [facility] (RESULTS) (BKR) Alkaline Phosphatase 62 44 - 121 IU/L [facility] (RESULTS) (BKR) AST 16 0 - 40 IU/L [facility] (RESULTS) (BKR) ALT 22 0 - 32 IU/L [facility] (RESULTS) (BKR) Blood Venous blood specimen / Unknown 08/23/2024 2:26 PM CDT 08/22/2024 11:00 PM CDT Narrative [facility] - 08/24/2024 4:06 AM CDT Performed at: 01 - [facility] [id number] Hydroelectric Machinery Mechanic: Donavan Liz MD, Phone: [phone] us Brandy Stafford APRN, RN LAB BLOOD ORDERABLES Fin al Result [facility] (RESULTS) (BKR) * HM Colonoscopy (02/25/2022) Anatomical Region Laterality Modality Other us Historical Provider HEALTH MAINTENANCE Final Result from Last 3 Months or Most Recently Relevant to Health Maintenance Insurance [employer] Care Teams Geodetic Surveyor Relationship Specialty Start Date End Date Hanna Sandhu MD PCP - General Family Medicine 01/31/23
--- OUTSIDE RECORDS SUMMARY | 2025-03-08 06:24 | XMS_ITS | Encounter Summary ---
[facility] Address [address] [place] [address] Care Team Providers Care Psych Assistant Name Role Phone Hanna Sandhu MD Primary Care Provider + Source Comments Please be aware that You and/or your organization are solely responsible for the use, security, privacy, and any decisions made with any information you receive from [facility] Reason for Visit * Reason Comments Med Refill Encounter Details Date Type Department Care Team ([facility] Contact Info) Description 06/12/2024 Refill [facility] Primary Care at [place] [address] [place] [phone] Hanna Sandhu MD [address] [place] [phone] Obesity (BMI 30-39.9) Social History Tobacco Use Types Packs/Day Years Used Date Smoking Tobacco: Every Day Cigarettes 0.2 39.7 Started: 1985 Passive Smoke Exposure: Past Smokeless Tobacco: Never Alcohol Use Standard Drinks/Week Comments Not Asked 0 (1 standard drink = 0.6 oz pur e alcohol) 5 drinks/wk PHQ-2 Answer Date Recorded Patient Health Questionnaire-2 Score 0 05/23/2024 [facility] Housing Answer Date Recorded Living Situation Not on file 01/27/2023 Housing Problems Not on file 01/27/2023 [facility] Safety Answer Date Recorded Threatened Not on file 01/27/2023 Insulted Not on file 01/27/2023 Physically Hurt Not on file 01/27/2023 Scream Not on file 01/27/2023 Comments No Sex and Gender Information Value Date Recorded Sex Assigned at Not on file Legal Sex Female 8:28 PM EST Gender Identity Not on file Sexual Orientation Not on file documented as of this encounter Miscellaneous Notes * Telephone Encounter - Katy Morales CMA - 06/20/2024 5:29 PM CST Duplicate request. RF sent in on 06/14/2024. documented in this encounter Plan of Treatment Upcoming Encounters Date Type Department Care Team (Late st Contact Info) Description 05/16/2025 8:00 AM ALUMINUM POURER Office Visit [facility] at [place] [address] [phone] Hanna Sandhu MD [address] [phone] documented as of this encounter Visit Diagnoses Diagnosis Obesity (BMI 30-39.9) documented in this encounter Care Teams Psych Assistant Relationship Specialty Start Date End Date Hanna Sandhu MD PCP - General Family Medicine 01/31/23 documented as of this encounter
--- OUTSIDE RECORDS SUMMARY | 2025-03-08 06:24 | XMS_ITS | Encounter Summary ---
[facility] Organization [facility] Address [address] [place] [address] Care Team Providers Care Human Resources Services Specialist Name Role Phone Hanna Sandhu MD Primary Care Provider + Source Comments Please be aware that You and/or your organization are solely responsible for the use, security, privacy, and any decisions made with any information you receive from [email or web address] Reason for Visit * Reason Comments Med Refill Encounter Details Date Type Department Care Team ([facility] Contact Info) Description 04/02/2023 Refill [facility] [place] [address] [place] [phone] Hanna Sandhu MD [address] [place] [address] MDD (major depressive disorder), recurrent episode, mild (HCC) Social History Tobacco Use Types Packs/Day Years Used Date Smoking Tobacco: Every Day Cigarettes 0.2 39.7 Started: 1985 Passive Smoke Exposure: Past Smokeless Tobacco: Never Alcohol Use Standard Drinks/Week Comments Not Asked 0 (1 standard drink = 0.6 oz pur e alcohol) 5 drinks/wk PHQ-2 Answer Date Recorded Patient Health Questionnaire-2 Score 0 04/05/2023 [facility] Housing Answer Date Recorded Living Situation Not on file 01/27/2023 Housing Problems Not on file 01/27/2023 [facility] Safety Answer Date Recorded Threatened Not on file 01/27/2023 Insulted Not on file 01/27/2023 Physically Hurt Not on file 01/27/2023 Scream Not on file 01/27/2023 Comments No Sex and Gender Information Value Date Recorded Sex Assigned at Not on file Legal Sex Female 8:28 PM EST Gender Identity Not on file Sexual Orientation Not on file documented as of this encounter Functional Status documented as of this encounter Plan of Treatment Upcoming Encounters Date Type Department Care Team (Late st Contact Info) Description 05/16/2025 8:00 AM CERTIFIED WELDING INSPECTOR Office Visit [facility] [place] [address] [facility] [address] [place] [phone] Hanna Sandhu MD [address] [place] [address] documented as of this encounter Visit Diagnoses Diagnosis MDD (major depressive disorder), recurrent episode, mild (HCC) documented in this encounter Care Teams Human Resources Services Specialist Relationship Specialty Start Date End Date Hanna Sandhu MD PCP - General Family Medicine 01/31/23 documented as of this encounter
--- OUTSIDE RECORDS SUMMARY | 2025-03-08 06:24 | XMS_ITS | Data Portability ---
Author Organization CARRILLO Nunes [facility] [place], [facility], [place] Address [address] [place] [address] Care Team Providers Care Bookmaker'S Clerk Name Role Phone TIERA WALDEN Primary Care Provider [phone] RAMÍREZ GAITAN Primary Care Provider Assessment Encounter Date Assessment Date Assessment LastModified by Organization Details LastModified Time 03/02/2021 03/02/2021 I had the pleasu re of seeing Sagar in the office today. Based on her history and and physical exam she has a mild vestibulopathy based on balance and posturography. Her fukuda was normal and HIT did not reveal a noticeable deficit today. It is likely she had a vestibular neuritis after an ear infection in December. She never took steroids. I recommend we do more comprehensive testing at [facility] and begin targeted vestibular PT as she is in a compensatory phase currently. If her findings at [facility] are suggestive of anything other than a peripheral vestibulopathy, we will discuss them at that time. We discussed her audiogram which shows normal hearing with 100% word recognition, AU. She has a type A right-sided tympanogram and a type As left-sided tympanogram.All questions were answered today. All questions were answered today. [email or web address] Not available 03/02/2021 16:46:41 11/30/2021 11/30/2021 I had the pleu re of seeing Sagar back in clinic today, for a 1 year follow up of thyroid nodules. She originally presented to clinic 10/09/20 for fullness on the right side of her neck that had been there 4 months. She reported pain in her right sternocleidomastoid muscle extending up to her jaw, which she reported was mild. In office ultrasound 11/20/21 showed 3 thyroid nodules, all needing a 1 year follow up ultrasound. She does have a history of smoking. Today, she reports her neck is still tight on the right side, without pain. In office ultrasound performed for monitoring, showing the nodules to be stable in size. We discussed the natural history of thyroid nodules and the potential for cysts, adenomas, and malignant neoplasms. We discussing using a combination of ultrasound features, family history, risk factor evaluation, and physical exam findings to collectively determine malignant potential and help guide decision making for whether or not to proceed with FNA biopsy. We discussed that a primary purpose of this visit is to synthesize available information including outside records such as labs, imaging reports, biopsy reports if available, family history, risk factors and physical exam findings to determine the potential risk of malignancy within any given thyroid nodule or mass. In this situation a fine needle aspiration biopsy is not indicated based on these collective findings. Risk of malignancy is carefully considered and while there is risk present it is felt to be acceptably low as to not require biopsy today. We discussed the nature of ongoing observation and monitoring required in the setting of a benign appearing but not definitively benign lesion such as this. In this situation a repeat ultrasound evaluation in one year will be ordered and an appointment reminder is placed if desired. I have reviewed all available outside records including labs, imaging reports and any biopsy findings and referring physician clinic reports. Images are also viewed by remotely logging into external record sources and/or cloud storage systems and viewed personally if available. Plan: -Follow up in 1 year for repeat ultrasound. Appointment reminder placed. Patient verbalizes understanding and is agreeable to the plan of care. Thank you for allowing me to care for your patients. Please feel free to contact me with any questions or concerns. Eron Mckenzie MD NU Board Certified Materials Scientist-Head and Neck Surgeon Member [place] [employer] Otol[employer]-Head [employer] Neck [employer] [facility] Office: [phone] [email or web address] Not available 12/01/2021 00:30:17 07/11/2023 07/11/2023 I had the pleasu re of seeing Sagar back in clinic today, for a follow up of thyroid nodules, it has been about 18 months since I saw her last. She originally presented to clinic 10/09/20 for fullness on the right side of her neck that had been there 4 months. She reported pain in her right sternocleidomastoid muscle extending up to her jaw, which she reported was mild. She does have a history of smoking. Today, she reports to be doing well. She is wanting to start wegovy and wants to check in on her thyroid nodules. In office ultrasound performed for monitoring. Plan: -Recommend follow up in 2 years. It has been a year and a half since her last follow up. Follow up sooner if any questions or concerns. Will order her next ultrasound to be performed at [facility]. Patient verbalizes understanding and is agreeable to the plan of care. Thank you for allowing me to care for your patients. Please feel free to contact me with any questions or concerns. Eron Mckenzie MD NU Board Certified Materials Scientist-Head and Neck Surgeon Member [place] [employer] Otol[employer]-Head [employer] Neck Surgery [facility] Office: [phone] [email or web address] Not available 07/12/2023 10:07:01 Plan of Treatment Reminders Order Date Submit Date Provider Last Modified By Organization Details Last Modified Time Details Appointments None recorded. Lab None recorded. Referral comprehensi ve vestibular diagnostic evaluation referral - Vestibular Therapy (Evaluate & Treatment) Number of Visits: TBD by vestibular expert Please see Mateo's note from [facility] on 03/02/212020 021 DBA_BACKF [place]_ 26 Mabi ([facility]), [address], [facility], [place], [address], 04:12:42 Procedures None recorded. Surgeries None recorded. Imaging None recorded. Medication Orders None recorded. Patient TargetsNo targets recorded. Patient InstructionsNo instructions recorded. Reason for Referral Comprehensive Vestibular Izabela gnostic Evaluation Referral for Dysfunction of vestibular system Vestibular Therapy (Evaluate & Treatment)Number of Visits: TBD by vestibular expertPlease see Mateo's note from [facility] on 03/02/21 Referring Physician: Lauryn Keith, Otolaryngology, Encounter Date: 03/02/2021 Results Created Date Observation Date Name Description Value Unit Range Abnormal Flag Note LastModifiedBy Organization Detail LastModifiedTime Result Notes None recorded. Problems No Known Problems Procedures Surgical History Date Name Laterality Status Provider Name and Address Organization Details Recorded Time 07/11/19 Ultrasound Soft Tissue Neck Report completed Geetha [place]ins [place] - [facility], [facility] 07/12/2023 10:06:22 12/01/19 Ultrasound Soft Tissue Neck Report completed Eron Mckenzie MD [address] [place] [address], [phone], [facility], [facility] 12/01/2021 00:29:35 03/02/20 DTR Binocular Microscopy completed Lauryn Keith NP [address] [place] [address], [phone], [facility], [facility] 03/02/2021 16:46:46 03/02/20 Audiology: Miscellaneous completed Jaleesa Sanchez [address] [place] [address], [phone], [facility], [facility] 03/03/2021 10:48:26 03/02/20 Audiologic Assessment completed Brandy Marie [facility], [facility] 03/02/2021 16:20:47 11/21/19 Ultrasound Soft Tissue Neck Report completed Eron Mckenzie MD [address] [place] [address], [phone], [facility], [facility] 01/21/2021 10:50:21 10/10/19 Fiberoptic Laryngoscopy (Comprehensive) completed Sherin Olivares [facility], [facility] 10/08/2020 14:24:46 Imaging Results None recorded. Procedure Notes None recorded. Medical Equipment None Reported. Allergies No known drug allergies Medications Name Sig Start Date Stop Date Status Note LastModified by Organization Details LastModified Time meloxicam 15 mg tablet TAKE 1 TABLET BY MOUTH EVERY DAY WITH FOOD FOR LOW BACK PAIN 11/30 completed Not Available Not Available Not Available triamcinolo ne acetonide 0.1 % topical cream APPLY THIN COAT TO AFFECTED AREA TWICE A DAY 10/09 completed Not Available Not Available Not Available amoxicillin 875 mg tablet TAKE 1 TABLET BY MOUTH TWICE A DAY FOR 7 DAYS 11/30 completed Not Available Not Available Not Available triamcinolo ne acetonide 0.1 % dental paste APPLY WITH FINGERTIP OR COTTON TIP APPLICATO R TO CANKER SORE UNTIL GONE. 10/09 completed Not Available Not Available Not Available omeprazole 20 mg capsule,del ayed release TAKE 1 CAPSULE BY MOUTH EVERY DAY FOR ACID REFLUX active Not Available Not Available No t Available neomycin-po lymyxin-hyd rocort 3.5 mg-10,000 unit/mL-1 % ear drops,susp ADMINISTE R 4 DROPS INTO EARS 4 (FOUR) TIMES A DAY FOR 10 DAYS. FOR 7 10 DAYS. 11/30 completed Not Available Not Available Not Available escitalopra m 10 mg tablet TAKE ONE HALF TAB BY MOUTH DAILY IN THE MORNING FOR ONE WEEK, THEN INCREASE TO 1 TAB IN THE MORNING 07/11 completed Not Available Not Available Not Available bupropion HCl XL 300 mg 24 hr tablet, extended release TAKE 1 TABLET (300 MG TOTAL) BY MOUTH ONCE EACH DAY IN THE MORNING. DO NOT CRUSH, CHEW, OR SPLIT 07/11 completed Not Available Not Available Not Available bupropion HCl XL 150 mg 24 hr tablet, extended release TAKE 1 TABLET (150 MG TOTAL) BY MOUTH EVERY DAY DO NOT CRUSH,HUI W, OR SPLIT active Not Available Not Available No t Available hydrochloro thiazide 12.5 mg tablet TAKE 1 TABLET BY MOUTH 1 TIME EACH DAY. active Not Available Not Available No t Available Vitals Date Recorded Body height Body mass index (BMI) Body weight Provider Name and Address Organization Details Last Updated DateTime 07/11/2023 172.72 cm 33.8 kg/m2 006787.51 g Sherin Cespedes [email or web address] [facility] [facility] 07/11/2023 14:46:47 Date Recorded Body weight Body mass index (BMI) Body height Provider Name and Address Organization Details Last Updated DateTime 11/30/2021 220824.72 g 34.3 kg/m2 172.72 cm Sherin Cespedes Phone.[email or web address] MD [employer] [facility] 11/30/2021 13:11:35 Social History None recorded. Functional Status Question Answer Note LastModified by Organization D etails LastModified Time What is your level of alcohol consumption? Moderate [email or web address] Information not available 10/09/2020 Mental Status None recorded. Family History Relationship Description Onset Age of this Age Resolved Age Notes LastModified by Organization Details LastModified Time Maternal Grandmother Family history of malignant neoplasm [email or web address] Not available 10/09 11:19:46 Mother Heart disease [email or web address] Not available 10/09 11:19:46 Maternal Grandfather Family history of malignant neoplasm [email or web address] Not available 10/09 11:19:46 Medical History Condition Response Reflux (GERD) Y Cancer Y Hypertension Y Gynecological HistoryNo gynecological history recorded. Obstetrics History GPAL:G 0 P 0 0 0 0 Past Encounters Encounter ID Performer Location Encounter Start Date Encounter Closed Date Diagnosis/Indication Diagnosis SNOMED-CT Code Diagnosis ICD10 Code Diagnosis IMO Codes Diagnosis Note [id number] MD Kevin Back [address] [place] [phone] 10/09/2020 10:55:43 10/23/2020 12:10:30 Neck swelling 651811562 R22.1 [id number] Eron Mckenzie MD [place] [address] [place] [phone] 11/20/2020 15:27:46 01/21/2021 13:00:46 Neck swelling 712053605 R22.1 Multinodular goiter 2375 95563 E04.2 Strain of neck muscle 36 2025382 S16.1XXD [id number] MD Holley Gotti( NACTIVE) [address] [place], [place] [phone] 03/02/2021 15:34:37 03/08/2021 14:21:20 Dysfunction of vestibular system 798225394 H81.90 likely following neuritis Dizziness 302632693 R42 [id number] Jaleesa Subramanian(I NACTIVE) [address] [place], [place] [phone] 03/02/2021 15:33:33 03/02/2021 16:21:59 Dysfunction of eustachian tube 65246251 H69.92 [id number] Bhavya Joyce ThomasJaleesa(I NACTIVE) [address] [place] [address], [address] [place] [address] 03/02/2021 15:34:04 04/12/2021 21:44:09 Dizziness and giddiness 440169348 R42 [id number] Eron Mckenzie MD Kevin [address] [place] [address],[facility] [place] [address] 11/30/2021 12:31:25 12/03/2021 15:47:56 Multinodular goiter 603112054 E04.2 Thyroid nodule 063492314 E04.1 [id number] MD Kevin Back [address] [facility] [place] [address] 07/11/2023 14:22:36 07/14/2023 13:40:27 Multinodular goiter 711282055 E04.2 Thyroid nodule 563755310 E04.1 Health Concerns Section Related Observation LastModified by Organization Detai ls LastModified Time None Recorded Concern Status LastModified by Organization Details LastModified Time None Recorded Advance Directives Directive None Recorded Payers Insurance Date Sequence Insurance Name Policy Number Policy Sheldon Covered Member ID Sheldon Member ID Guarantor Name 07/14/2023 1 BCBS-MER: [employer] 113 Sagar L Beto [id number] Sagar Pérez Notes Date Note Type Note Provider Name and Address Organization Details Recorded Time 03/02/2021 text/html 50 year old female presents today for evaluation of dizziness for the past 6 weeks. Patient states that her symptoms started after she was in an airplane and not able ot equalize her ears after the flight. Patient noticed left ear pressure and fullness. SHe was seen at [facility] and told she had otitis externa. Patient was placed on antibiotics at that time. She has noticed over the past 3 weeks 2-3 sec episodes of spinning when she turns her head to the left. Patient has also had some difficulties reading. Lauryn Keith NP [address] [place], [phone], [facility], [facility] 03/02/2021 16:47:35 11/30/2021 text/html Here for follow up of: right neck swelling and multinodular goiter Intervention since last visit: monitoring for changes Did the symptoms improve?: yes Unresolved symptoms: Today patient reports that her neck still feels tight on the right side but it isn't sore. Laboratory or diagnostic testing: Ultrasound performed today in the office Eron Mckenzie MD [address] [place] [address], [phone], [employer] [facility], [employer] 12/01/2021 00:30:45 07/11/2023 text/html Here for follow up of: a thyroid nodule and multinodular goiter Intervention since last visit: monitoring for changes Did the symptoms improve?: yes Unresolved symptoms: She is still having right sided neck tightness that is stable -no pain. She is going to be starting Wegovy. Her PCP carlos a TSH - Laboratory or diagnostic testing: Ultrasound performed today in the office Eron Mckenzie MD [address] [place] [address], [phone], [facility], [employer] 07/13/2023 14:52:28 OBGyn Episode No OBEpisode recorded.
--- OUTSIDE RECORDS SUMMARY | 2025-03-08 06:24 | XMS_ITS | Encounter Summary ---
Author Organization [facility] Address [address] [place] [address] Care Team Providers Care Manager Social Name Role Phone Hanna Sandhu MD Primary Care Provider + Source Comments Please be aware that You and/or your organization are solely responsible for the use, security, privacy, and any decisions made with any information you receive from [facility] Reason for Visit * Reason Comments Med Refill Encounter Details Date Type Department Care Team ([facility] Contact Info) Description 10/03/2023 Refill [facility] [place] [address] [place] [phone] Hanna Sandhu MD [address] [place] [address] Social History Tobacco Use Types Packs/Day Years Used Date Smoking Tobacco: Every Day Cigarettes 0.2 39.7 Started: 1985 Passive Smoke Exposure: Past Smokeless Tobacco: Never Alcohol Use Standard Drinks/Week Comments Not Asked 0 (1 standard drink = 0.6 oz pur e alcohol) 5 drinks/wk PHQ-2 Answer Date Recorded Patient Health Questionnaire-2 Score 0 09/12/2023 [facility] Housing Answer Date Recorded Living Situation Not on file 01/27/2023 Housing Problems Not on file 01/27/2023 [facility] Safety Answer Date Recorded Threatened Not [...] encounter Miscellaneous Notes * Telephone Encounter - Wally Collado CMA - 10/04/2023 8:33 AM CDT Pt notified rx sent. * Telephone Encounter - Wally Collado CMA - 10/04/2023 8:13 AM CDT Pt called stating she is tolerating Wegovy well would like to know if she can go up to the .5 stated the pharmacy have short supply would like a new script sent pharmacy confirmed in pt chart [facility] [address] Please advise if change is okay. documented in this encounter Plan of Treatment Upcoming Encounters Date Type Department Care Team (Late st Contact Info) Description 05/16/2025 8:00 AM COMMISSIONER OF INTERNAL REVENUE Office Visit [facility] [place] [address] [facility] [address] [place] [phone] Hanna Sandhu MD [address] [address] documented as of this encounter Visit Diagnoses Not on filedocumented in this encounter Care Teams Manager Social Relationship Specialty Start Date End Date Hanna Sandhu MD PCP - General Family Medicine 01/31/23 documented as of this encounter
--- OUTSIDE RECORDS SUMMARY | 2025-03-08 06:24 | XMS_ITS | Encounter Summary ---
Author Organization [facility] Address [address] [place] [address] Care Team Providers Care Numerical Control Tool Programmer Name Role Phone Hanna Sandhu MD Primary Care Provider + Source Comments Please be aware that You and/or your organization are solely responsible for the use, security, privacy, and any decisions made with any information you receive from [facility] Reason for Visit * Reason Onset Date Comments Med Refill 06/07/2024 Encounter Details Date Type Department Care Team (Late st Contact Info) Description 06/07/2024 Refill [facility] [place] [address] [place] [phone] Hanna Sandhu MD [address] [place] [address] Obesity (BMI 30-39.9) Social History Tobacco Use Types Packs/Day Years Used Date Smoking Tobacco: Every Day Cigarettes 0.2 39.7 Started: 1985 Passive Smoke Exposure: Past Smokeless Tobacco: Never Alcohol Use Standard Drinks/Week Comments Not Asked 0 (1 standard drink = 0.6 oz pur e alcohol) 5 drinks/wk PHQ-2 Answer Date Recorded Patient Health Questionnaire-2 Score 0 05/23/2024 [facility] Housing Answer Date Recorded Living Situation Not on file 01/27/2023 Housing Problems Not on file 01/27/2023 [facility] Safety Answer Date Recorded Threatened Not [...] encounter Miscellaneous Notes * Telephone Encounter - Fito Ling CMA - 06/18/2024 10:50 AM VAULT MECHANIC Refilled on 06/14/24 documented in this encounter Plan of Treatment Upcoming Encounters Date Type Department Care Team (Late st Contact Info) Description 05/16/2025 8:00 AM VAULT MECHANIC Office Visit [facility] [place] [address] [facility] [address] [place] [phone] Hanna Sandhu MD [address] [address] documented as of this encounter Visit Diagnoses Diagnosis Obesity (BMI 30-39.9) documented in this encounter Care Teams Numerical Control Tool Programmer Relationship Specialty Start Date End Date Hanna Sandhu MD PCP - General Family Medicine 01/31/23 documented as of this encounter
--- OUTSIDE RECORDS SUMMARY | 2025-03-08 06:24 | XMS_ITS | Encounter Summary ---
Author Organization [facility] Address [address] [place] [id number] Care Team Providers Care Meteorological Aide Name Role Phone Hanna Sandhu MD Primary Care Provider + Source Comments Please be aware that You and/or your organization are solely responsible for the use, security, privacy, and any decisions made with any information you receive from [email or web address] Reason for Visit * Reason Comments Med Refill Encounter Details Date Type Department Care Team ([facility] Contact Info) Description 01/20/2024 Refill [facility] [place] [address] [place] [phone] Hanna Sandhu MD [address] [place] [phone] Obesity (BMI 30-39.9) Social History Tobacco Use Types Packs/Day Years Used Date Smoking Tobacco: Every Day Cigarettes 0.2 39.7 Started: 1985 Passive Smoke Exposure: Past Smokeless Tobacco: Never Alcohol Use Standard Drinks/Week Comments Not Asked 0 (1 standard drink = 0.6 oz pur e alcohol) 5 drinks/wk PHQ-2 Answer Date Recorded Patient Health Questionnaire-2 Score 0 01/23/2024 [facility] Housing Answer Date Recorded Living Situation Not on file 01/27/2023 Housing Problems Not on file 01/27/2023 [facility] Safety Answer Date Recorded Threatened Not on [...] Functional Status documented as of this encounter Miscellaneous Notes * Telephone Encounter - Katy Morales CMA - 01/22/2024 5:56 PM CDT Duplicate request. Last RF sent in on 01/19/2024 3ml. documented in this encounter Plan of Treatment Upcoming Encounters Date Type Department Care Team (Late st Contact Info) Description 05/16/2025 8:00 AM [employer]EST [employer] Office Visit [facility] [place] [address] [phone] [place] [address] [place] [phone] documented as of this encounter Visit Diagnoses Diagnosis Obesity (BMI 30-39.9) documented in this encounter Care Teams Meteorological Aide Relationship Specialty Start Date End Date Hanna Sandhu MD PCP - General Family Medicine 01/31/23 documented as of this encounter
[2025-03-08 06:27] VITALS: BP 158/93; PULSE 77; RESP 18; TEMP 36.9; O2SAT 97
--- NOTE | 2025-03-08 06:27 | ED_ITS ---
HPI - Chest Pain 2 General: Chief Complaint: Chest Pain Stated Complaint: chest pain Time Seen by Provider: 03/08/25 06:18 History of Present Illness: 54-year-old female with a history of hyp ertension, anxiety who presents emergency room with chest pain. She and her are visiting had a travel branch here from [place]. In the middle the night she woke up initially with some abdominal pain and then developed chest pain. She appears extremely anxious and tachypneic. No cough. No altered mental status. No focal motor deficits. No cardiac history. states he thinks she did have pancreatitis at 1 point. Related Data Allergies Allergy/AdvReac Type Severity Reaction Status Date / Time No Known Allergies Allergy Verified 03/08/25 06:39 Review of Systems 2 Narrative: Constitutional symptoms: Negative except as documented in HPI. Skin symptoms: Negative except as documented in HPI. Eye symptoms: Negative except as documented in HPI. ENMT symptoms: Negative except as documented in HPI. Respiratory symptoms: Negative except as documented in HPI. Cardiovascular symptoms: Negative except as documented in HPI. Gastrointestinal symptoms: Negative except as documented in HPI. Genitourinary symptoms: Negative except as documented in HPI. Musculoskeletal symptoms: Negative except as documented in HPI. Neurologic symptoms: Negative except as documented in HPI. Psychiatric symptoms: Negative except as documented in HPI. Endocrine symptoms: Negative except as documented in HPI. Physical Exam 2 Narrative: EXAM NARRATIVE: General: Alert Skin: Warm, dry. Head: Normocephalic, atraumatic. Neck: Supple, trachea midline. Eye: Extraocular movements are intact. Ears, nose, mouth and throat: mucosa moist. Cardiovascular: Regular, Normal peripheral perfusion. Respiratory: Lungs are clear to auscultation, tachypneic, Gastrointestinal: Soft, Nontender, Non distended Musculoskeletal: Normal ROM, no deformity. Neurological: Alert and oriented, No focal neurological deficit observed. Psychiatric: Cooperative, patient appears extremely anxious. She is writhing in the bed. Course 2 Vital Signs: Vital signs: Vital Signs Temperature 98.5 F 03/08/25 06:27 Pulse Rate 64 03/08/25 08:48 Respiratory Rate 18 03/08/25 07:34 Blood Pressure 112/66 03/08/25 08:48 Pulse Oximetry 98 03/08/25 08:48 Oxygen Delivery Me thod Room Air 03/08/25 06:27 MDM - Chest Pain Medical Decision Making Differential diagnosis for patient with chest pain includes but is not limited to and based on the above HPI, review of systems and physical exam: Pneumonia. unstable angina. angina. Acute coronary syndrome / ND. Pulmonary embolism. Costochondritis / musculoskeletal. Pleurisy. Pericarditis. Esophageal spasm. Pancreatis. Cholecystitis. Orders placed to evaluate differential diagnosis based on the above differential, HPI and physical exam EKG: Time 6:22 AM. Rate 75. Normal sinus rhythm, No ST-T changes, no ectopy, normal SD & QRS intervals, This was reviewed and interpreted by myself the ER physician at 6:25 AM Chest x-ray: No acute process. No infiltrate. No pneumothorax. This was reviewed and interpreted by myself the emergency room physician. I also reviewed the radiology report. Lab Review: Laboratory results were reviewed and interpreted by myself the emergency room physician. No leukocytosis. No anemia. No renal failure. Lipase is negative. Serial cardiac markers are negative. AB.50/33/95 with an O2 sat of 98% on room air. Does show evidence of hypocapnia which would indicate tachypnea which appears to be secondary to anxiety I reviewed the patient's medical record. Reexamination: Patient appears much improved after Ativan. She is resting in bed comfortably. No longer having chest pain or anxiety. Assessment and plan: Noncardiac chest pain Panic attack ? IV Ativan - Discharged home - Discussed plan with patient. Answered any questions. - Evaluation and treatment of this problem were appropriate in the emergency setting. Lab Data 03/08/25 06:20 03/08/25 06:20 Radiology Impressions Chest X-Ray 03/08/25 06:17 IMPRESSION: No acute findings. Laboratory Results WBC 8.12 10^3/uL (3.29-11.43) 03/08/25 06:20 RBC 5.00 10^6/uL (3.85-5.65) 03/08/25 06:20 Hgb 14.80 g/dL (11.27-16.99) 03/08/25 06:20 Hct 43.4 % (36-47) 03/08/25 06:20 MCV 86.8 fl (85-98) 03/08/25 06:20 MCH 29.6 pg (27-33) 03/08/25 06:20 MCHC 34.1 g/dL (30-55) 03/08/25 06:20 RDW 12.4 % (12.1-15.1) 03/08/25 06:20 Plt Count 198 10^3/cmm (157-399) 03/08/25 06:20 MPV 9.9 fL (7.4-10.4) 03/08/25 06:20 Neut % (Auto) 73.3 % 03/08/25 06:20 Lymph % (Auto) 21.6 % 03/08/25 06:20 Stanly % (Auto) 4.2 % 03/08/25 06:20 Eos % (Auto) 0.5 % 03/08/25 06:20 Baso % (Auto) 0.2 % 03/08/25 06:20 Neut # (Auto) 5.95 10^3/uL (1.8-7.7) 03/08/25 06:20 Lymph # (Auto) 1.8 10^3/uL (0.8-4.8) 03/08/25 06:20 Stanly # (Auto) 0.3 10^3/uL (0.2-0.9) 03/08/25 06:20 Eos # (Auto) 0.0 10^3/uL (0.0-0.8) 03/08/25 06:20 Baso # (Auto) 0.0 10^3/uL (0.0-0.1) 03/08/25 06:20 Nucleated RBC % (auto) 0 % 03/08/25 06:20 Nucleated RBCs # 0.0 /100WBC 03/08/25 06:20 Specimen Type Arterial 03/08/25 06:51 Sample Site Brachial, left 03/08/25 06:51 ABG pH 7.50 (7.35-7.45) H 03/08/25 06:51 ABG pCO2 33.0 mmHg (35-45) L 03/08/25 06:51 ABG pO2 95.0 mmHg (80.0-100.0) 03/08/25 06:51 ABG PO2/FiO2 Ratio 452 03/08/25 06:51 ABG HCO3 26.0 mmol/L (22-26) 03/08/25 06:51 ABG O2 Saturation 98.7 03/08/25 06:51 ABG Base Excess 3.3 mmol/L (-2.0-2.0) H 03/08/25 06:51 Jose Test Pos 03/08/25 06:51 A-a O2 Gradient 1.6 mmHg (5-10) L 03/08/25 06:51 Hematocrit 43.5 % (37-47) 03/08/25 06:51 Hgb O2 Saturation 97.8 % (95-100) 03/08/25 06:51 Carboxyhemoglobin 0.8 %THgb (0.4-20.1) 03/08/25 06:51 Methemoglobin 0.2 % (0.4-1.5) L 03/08/25 06:51 Total Hemoglobin 14.2 g/dL (12-16) 03/08/25 06:51 Sodium 141.0 mmol/L (131-143) 03/08/25 06:51 Potassium 3.2 mmol/L (3.5-5.0) L 03/08/25 06:51 Glucose 102.0 mg/dL (70-115) 03/08/25 06:51 Ionized Calcium 1.2 mmol/L (1.1-1.4) 03/08/25 06:51 O2 Delivery Device Room air 03/08/25 06:51 FiO2 21.0 % 03/08/25 06:51 Support Merchandiser ID Monro 03/08/25 06:51 Sodium 141 mmol/L (136-145) 03/08/25 06:20 Potassium 3.2 mmol/L (3.5-5.1) L 03/08/25 06:20 Chloride 101 mmol/L (98-107) 03/08/25 06:20 Carbon Dioxide 25 mmol/L (22-29) 03/08/25 06:20 Anion Gap 18.2 (5-19) 03/08/25 06:20 BUN 15 mg/dL (6-20) 03/08/25 06:20 Creatinine 0.7 mg/dL (0.5-0.9) 03/08/25 06:20 GFR Calculation 87.2 mL/min (90-130) L 03/08/25 06:20 Glucose 137 mg/dL (65-115) H 03/08/25 06:20 Calculated Osmolality 295 mOsm/kg (285-295) 03/08/25 06:20 Calcium 9.6 mg/dL (8.5-10.5) 03/08/25 06:20 Total Bilirubin 0.4 mg/dL (0.15-1.2) 03/08/25 06:20 AST 47 U/L (0-32) H 03/08/25 06:20 ALT 40 U/L (0-33) H 03/08/25 06:20 Alkaline Phosphatase 64 U/L (35-105) 03/08/25 06:20 Troponin T Baseline 7 ng/L (0-10) 03/08/25 06:20 Troponin T 120 Minute 6.50 ng/L (0-10) 03/08/25 08:25 Delta Troponin T -0.50 ABS# (0-10) L 03/08/25 08:25 NT-Pro-B Natriuret Pep 75 pg/mL (0-125) 03/08/25 06:20 Total Protein 6.6 g/dL (6.6-8.7) 03/08/25 06:20 Albumin 4.6 g/dL (3.5-5.2) 03/08/25 06:20 Globulin 2.0 g/dL (1.3-4.6) 03/08/25 06:20 Lipase 26 U/L (13-60) 03/08/25 06:20 Ethyl Alcohol < 10 mg/dL (0-10) 03/08/25 06:20 All radiology interpretation(s) finalized by discharge Discharge Plan Discharge Patient Disposition: Home Clinical Impression: Non-cardiac chest pain, Panic attack Condition: Stable Discharge Orders: Discharge ED (Routine); Ordered 03/08/25 Ordered By: Patti Ann Discharge Diet: Usual diet Discharge Activity: Increase activity as tolerated Patient Instructions: Noncardiac Chest Pain (ED), Opioid Safety, Pain Management, Patient Portal & [facility] Instructions Activity Restrictions/Additional Instructions: Thank you for choosing [facility] for your healthcare needs today. You have been screened and evaluated and felt safe for discharge. Health conditions do change or evolve sometimes and as such it is important that you follow up with your Primary Doctor to be re checked, 3-5 days is a general good time frame for follow up. 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
[2025-03-08 06:30] LABS: Hematocrit 43.4 % (36-47); Hemoglobin 14.80 g/dL (11.27-16.99); Mean Corpuscular HGB Conc 34.1 g/dL (30-55); Mean Corpuscular Hemoglobin 29.6 pg (27-33); Mean Corpuscular Volume 86.8 fl (85-98); Nucleated Red Blood Cells % 0 %; Platelet Count 198 10^3/cmm (157-399); Red Blood Count 5.00 10^6/uL (3.85-5.65); White Blood Count 8.12 10^3/uL (3.29-11.43)
[2025-03-08] MEDS: LORazepam 1 MG/0.5 ML injection IVP (06:38)
[2025-03-08 07:03] LABS: ABG PCO2 33.0 mmHg (35-45); ABG PH Result 7.50 (7.35-7.45); Alveolar-Arterial Oxygen Gradi 1.6 mmHg (5-10); Arterial Blood Gas Hematocrit 43.5 % (37-47); Blood Gas Allen Test Pos; Blood Gas Operator Identificat MONRO; Blood Gas Sample Site Brachial, left; Blood Gas Sample Type Arterial; Carboxyhemoglobin 0.8 %THgb (0.4-20.1); Glucose Level-ABG 102.0 mg/dL (70-115); HCO3 ABG 26.0 mmol/L (22-26); Ionized Calcium Level - ABG 1.2 mmol/L (1.1-1.4); Methemoglobin 0.2 % (0.4-1.5); Oxygen Saturation ABG 98.7; PO2 ABG 95.0 mmHg (80.0-100.0); PO2 FiO2 Ratio Arterial Blood 452; Potassium Level - ABG 3.2 mmol/L (3.5-5.0); Sodium Level - ABG 141.0 mmol/L (131-143)
[2025-03-08 07:07] LABS: Troponin(5th) Baseline 7 ng/L (0-10)
[2025-03-08 07:18] LABS: Alanine Aminotransferase 40 U/L (0-33); Albumin Level 4.6 g/dL (3.5-5.2); Alkaline Phosphatase 64 U/L (35-105); Anion Gap 18.2 (5-19); Aspartate Amino Transferase 47 U/L (0-32); Blood Urea Nitrogen 15 mg/dL (6-20); Calcium 9.6 mg/dL (8.5-10.5); Carbon Dioxide 25 mmol/L (22-29); Chloride 101 mmol/L (98-107); Creatinine Clr Calc Pharmacy 102.9764; Globulin 2.0 g/dL (1.3-4.6); Glucose 137 mg/dL (65-115); Lipase 26 U/L (13-60); NT Pro B Type Natriuretic Pept 75 pg/mL (0-125); Osmolality Calculated 295 mOsm/kg (285-295); Potassium 3.2 mmol/L (3.5-5.1); Sodium 141 mmol/L (136-145); Total Protein 6.6 g/dL (6.6-8.7)
[2025-03-08 07:34] VITALS: BP 123/82; PULSE 61; RESP 18; O2SAT 98
[2025-03-08 08:02] LABS: Alcohol Level < 10 mg/dL (0-10)
--- NOTE | 2025-03-08 08:17 | ECG_ITS ---
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
[2025-03-08 08:48] VITALS: BP 112/66; PULSE 64; O2SAT 98
[2025-03-08 08:48] LABS: Troponin 5 2HR 6.50 ng/L (0-10)
[2025-03-08 08:52] LABS: Troponin 5 2HR Delta -0.50 ABS# (0-10)
[2025-03-08 09:27] VITALS: BP 111/67; PULSE 70; O2SAT 98
== END 2025-03-08 09:28 | disposition home or self-care (01) ==
PROVIDERS: Emergency Provider Emergency Medicine
DX: R07.89 Other chest pain (principal); F41.0 Panic disorder [episodic paroxysmal anxiety]; I10 Essential (primary) hypertension
CPT/HCPCS: 36415; 36600; 71045; 80051; 80053; 80307; 82330; 82805; 83690; 83880; 84484; 85025; 93005; 96374; 99285; J2060; J9999